=== PATIENT | female | born 1985 | race Hispanic/Latino ===

== ENCOUNTER 2018-06-23 09:45 | Inpatient (IN) | payer OTHER, SELFPAY ==
[2018-06-23 12:25] VITALS: BMI 28.0
[2018-06-23] MEDS ORDERED: HYDROcodone/Acetaminophen 5/325 mg Tablet PO PRN (12:31)
[2018-06-23] MEDS ORDERED: Ondansetron PF 4 MG/2 ML Vial IVP PRN ×2 (12:31→21:13)
[2018-06-23] MEDS ORDERED: Methylergonovine 0.2 MG/ML VIAL IM PRN (12:31)
[2018-06-23] MEDS ORDERED: Butorphanol Tartrate 1 MG/ML VIAL SLOW IVP PRN (12:31)
[2018-06-23] MEDS ORDERED: Diphenoxylate HCl/Atropine Tablet PO PRN (12:31)
[2018-06-23] MEDS ORDERED: NS / Oxytocin 40 units/1000ml 1,000 ML IV PRN (12:31)
[2018-06-23] MEDS ORDERED: Misoprostol 200 MCG TAB PR PRN (12:31)
[2018-06-23] MEDS ORDERED: Carboprost 250 MCG/ML AMP IM PRN (12:31)
[2018-06-23] MEDS ORDERED: Ibuprofen 800 MG TAB PO PRN (12:31)
[2018-06-23] MEDS ORDERED: Lidocaine 1% (PF) 30 ML VIAL SC PRN (12:31)
[2018-06-23] MEDS: Lactated Ringer's 1,000 ML IV SCH ×2 (12:55→20:31)
[2018-06-23 13:14] LABS: Hemoglobin 14.1 g/dL (12.0-16.0); Mean Corpuscular HGB CONC 35.4 g/dL (32.0-36.0); Mean Corpuscular Hemoglobin 30.3 pg (27.0-31.0); Mean Corpuscular Volume 85.8 fL (78.0-98.0); Mean Platelet Volume 6.9 fL (7.4-10.4); Platelet Count 295 thou/uL (130-400); RBC Distribution Width 13.2 % (11.5-14.5); Red Blood Cell (RBC) Count 4.63 mill/uL (4.20-5.40); White Blood Cell (WBC) Count 11.4 thou/uL (4.8-10.8)
--- NOTE | 2018-06-23 13:22 | ULT ---
LIMITED OB ULTRASOUND: History: Confirm demise. No cardiac activity detected. Technique: Multiplanar grayscale and color doppler images were obtained in a transabdominal ult rasound. FINDINGS: There is very little amniotic fluid volume. There is an intrauterine . No heart rate i s able to be detected. IMPRESSION: Confirmation of demise. POS: RON
[2018-06-23] MEDS ORDERED: Misoprostol 200 MCG TAB ONE (13:24)
[2018-06-23] MEDS: Misoprostol 100 MCG TAB PO SCH ×2 (13:27→17:37)
[2018-06-23] MEDS ORDERED: Fentanyl 4 mcg/Bup 0.1% Cadd 100 ML ONE (20:17)
[2018-06-23] MEDS ORDERED: Lidocaine 1.5%/Epinephrine 1:200,000 5 ML AMPUL IJ ONE (20:17)
[2018-06-23] MEDS ORDERED: Lactated Ringer's 500 ML IV PRN (21:13)
[2018-06-23] MEDS ORDERED: Promethazine HCl 25 MG/ML VIAL IM PRN (21:13)
[2018-06-23] MEDS ORDERED: Naloxone HCl 0.4 mg/ml Vial IVP PRN ×2 (21:13)
[2018-06-23] MEDS ORDERED: ePHEDrine/0.9% NaCl/PF SYRINGE 50 mg/10 ml SLOW IVP PRN (21:13)
[2018-06-23] MEDS ORDERED: diphenhydrAMINE 50 MG/ML VIAL IVP PRN (21:13)
[2018-06-23] MEDS ORDERED: Eucerin (Mineral Oil/Petrolatum,White) 30 gm Jar TOP PRN (21:13)
[2018-06-23] MEDS ORDERED: Acetaminophen 325 MG TAB PO PRN (21:13)
[2018-06-23] MEDS ORDERED: Fentanyl 4 mcg/Bupivacaine 0.1% Cassette 100 ML EPIDURAL SCH (21:15)
[2018-06-23] MEDS ORDERED: Communication Order-Pharmacy FS SCH (21:15)
[2018-06-23] MEDS: Misoprostol 200 MCG TAB PO SCH (22:10)
[2018-06-24] MEDS: Lactated Ringer's 1,000 ML IV SCH ×2 (01:21→12:45)
[2018-06-24] MEDS ORDERED: Fentanyl 4 mcg/Bup 0.1% Cadd 100 ML ONE (05:25)
[2018-06-24] MEDS: Misoprostol 200 MCG TAB PO SCH (05:28)
[2018-06-24] MEDS ORDERED: Misoprostol 200 MCG TAB ONE (08:11)
[2018-06-24] MEDS ORDERED: Bisacodyl 10 MG SUPP PR PRN (09:21)
[2018-06-24] MEDS ORDERED: Ondansetron PF 4 MG/2 ML Vial IVP PRN (09:21)
[2018-06-24] MEDS ORDERED: HYDROcodone/Acetaminophen 5/325 mg Tablet PO PRN ×2 (09:21)
[2018-06-24] MEDS ORDERED: diphenhydrAMINE 25 MG CAP PO PRN (09:21)
[2018-06-24] MEDS ORDERED: Milk Of Magnesia 30 ML UDCUP PO PRN (09:21)
[2018-06-24] MEDS ORDERED: NS / Oxytocin 40 units/1000ml 1,000 ML IV SCH (09:30)
[2018-06-24] MEDS ORDERED: NIFEdipine XL 60 MG TAB PO SCH (10:00)
[2018-06-24 11:32] VITALS: BP 158/84
[2018-06-24] MEDS ORDERED: Bupivacaine HCl 0.25%/Epi 0.0005/PF 10 ML VIAL FS ONE (13:07)
[2018-06-24] MEDS ORDERED: Ibuprofen 800 MG TAB PO SCH (14:00)
[2018-06-24] MEDS ORDERED: Ferrous Sulfate 325 MG TAB PO SCH (17:00)
[2018-06-24] MEDS ORDERED: Docusate Calcium (SURFAK) 240 MG CAP PO SCH (21:00)
[2018-06-25] MEDS ORDERED: NIFEdipine XL 60 MG TAB PO SCH (09:00)
== END 2018-06-24 17:54 | disposition home or self-care (01) | DRG 806 ==
LOC: L&D 10:56
PROVIDERS: ADMIT Family Medicine; ATTEND Family Medicine
PROC: 10E0XZZ Delivery of Products of Conception, External Approach (ICD-10-PCS; principal; 2018-06-23)
PROC: 3E0P7VZ Introduction of Hormone into Female Reproductive, Via Natural or Artificial Opening (ICD-10-PCS; 2018-06-23)
DX: O36.4XX0 Maternal care for intrauterine death, not applicable or unspecified (principal); O10.92 Unspecified pre-existing hypertension complicating childbirth; Z37.1 Single stillbirth; O69.1XX0 Labor and delivery complicated by cord around neck, with compression, not applicable or unspecified; Z3A.34 34 weeks gestation of pregnancy
CPT/HCPCS: 36415; 51702; 76815; 85027; 86850; 86900; 86901; 88307; J2001; J3490

== ENCOUNTER 2021-12-15 18:11 | Observation (INO) | payer MEDICAID ==
[2021-12-15] MEDS ORDERED: Ondansetron ODT 4 MG TAB PO PRN (21:18)
[2021-12-15] MEDS ORDERED: Ondansetron PF 4 MG/2 ML Vial IVP PRN (21:18)
[2021-12-15] MEDS ORDERED: Acetaminophen 650 MG Suppository PR PRN (21:18)
[2021-12-15 22:00] VITALS: BMI 31.7
[2021-12-15] MEDS: Sodium Chloride 0.9% 1,000 ML IV SCH (23:53)
[2021-12-16] MEDS ORDERED: VANCOMYCIN 1.25 GM/250 ML BAG IVPB SCH (03:00)
[2021-12-16] MEDS: VANCOMYCIN 1.25 GM/250 ML BAG 1.25 GM in Premix Bag 1 BAG IVPB SCH ×2 (04:08→14:46)
[2021-12-16 05:58] LABS: Anion Gap 15 mmol/L (10-20); BUN (Urea Nitrogen) 7 mg/dL (7.0-18.7); Calc. Creatinine Clearance 163 mL/min (70-130); Calcium 8.3 mg/dL (7.8-10.44); Carbon Dioxide 18 mmol/L (22-29); Chloride 112 mmol/L (98-107); Glucose 98 mg/dL (70-105); Potassium 3.7 mmol/L (3.5-5.1); Sodium 141 mmol/L (136-145)
[2021-12-16 05:59] LABS: Hemoglobin 10.8 g/dL (12.0-16.0); Mean Corpuscular HGB CONC 33.9 g/dL (32.0-36.0); Mean Corpuscular Hemoglobin 31.5 pg (27.0-31.0); Mean Platelet Volume 8.4 fL (7.4-10.4); Platelet Count 199 thou/uL (130-400); RBC Distribution Width 14.1 % (11.5-14.5); Red Blood Cell (RBC) Count 3.41 mill/uL (4.20-5.40); White Blood Cell (WBC) Count 12.6 thou/uL (4.8-10.8)
[2021-12-16] MEDS: Acetaminophen 325 MG TAB PO PRN ×3 (06:25→14:46)
[2021-12-16 06:42] LABS: Band 23 % (5-11); Lymphocytes 15 % (21-51); MDiff Complete? YES; Monocytes 4 % (0-10); Neutrophil 58 % (42-75)
[2021-12-16] MEDS: Enoxaparin Sodium 40 MG/0.4 ML SYRINGE SC SCH (08:01)
[2021-12-16] MEDS: Sodium Chloride 0.9% 1,000 ML IV SCH (14:47)
[2021-12-16] MEDS ORDERED: cefTRIAXone\\ROCEPHIN 1 GM in Sodium Chloride 0.9% 100 ML IVPB SCH (17:00)
[2021-12-16] MEDS ORDERED: Ibuprofen 200 MG TAB PO SCH (19:30)
[2021-12-17 02:10] LABS: #Basophils 0.1 thou/uL (0.0-0.2); #Eosinphils 0.2 thou/uL (0.0-0.7); #Lymphocytes 2.4 thou/uL (1.20-3.40); #Monocytes 0.8 thou/uL (0.11-0.59); %Basophils 0.5 % (0.0-1.0); %Eosinophils 1.7 % (0.0-10.0); %Lymphocytes 22.8 % (21.0-51.0); %Monocytes 7.6 % (0.0-10.0); %Neutrophils 67.3 % (42.0-75.0); Hemoglobin 10.9 g/dL (12.0-16.0); Mean Corpuscular HGB CONC 34.2 g/dL (32.0-36.0); Mean Corpuscular Hemoglobin 31.7 pg (27.0-31.0); Mean Corpuscular Volume 92.7 fL (78.0-98.0); Mean Platelet Volume 7.1 fL (7.4-10.4); Platelet Count 253 thou/uL (130-400); RBC Distribution Width 13.9 % (11.5-14.5); Red Blood Cell (RBC) Count 3.44 mill/uL (4.20-5.40); White Blood Cell (WBC) Count 10.5 thou/uL (4.8-10.8)
[2021-12-17 02:30] LABS: Vancomycin, Trough 6.6 ug/mL
[2021-12-17 02:37] LABS: Anion Gap 11 mmol/L (10-20); BUN (Urea Nitrogen) 8 mg/dL (7.0-18.7); Calc. Creatinine Clearance 148 mL/min (70-130); Calcium 8.3 mg/dL (7.8-10.44); Carbon Dioxide 21 mmol/L (22-29); Chloride 110 mmol/L (98-107); Glucose 89 mg/dL (70-105); Potassium 3.4 mmol/L (3.5-5.1); Sodium 139 mmol/L (136-145)
[2021-12-17] MEDS: Enoxaparin Sodium 40 MG/0.4 ML SYRINGE SC SCH (08:01)
[2021-12-17 11:53] VITALS: BP 144/97; TEMP 98.1
== END 2021-12-17 15:00 | disposition home or self-care (01) ==
LOC: NEURO 20:14
PROVIDERS: ADMIT Hospitalist; ATTEND Hospitalist
DX: O86.21 Infection of kidney following delivery (principal); B96.20 Unspecified Escherichia coli [E. coli] as the cause of diseases classified elsewhere; O10.93 Unspecified pre-existing hypertension complicating the puerperium; O99.893 Other specified diseases and conditions complicating puerperium; M54.9 Dorsalgia, unspecified; R51.9 Headache, unspecified; Z86.32 Personal history of gestational diabetes; Z79.899 Other long term (current) drug therapy
CPT/HCPCS: 36415; 72148; 80048; 80202; 85025; 96372; 96374; 96375; 96376; G0378; J0696; J1650; J3370; J3490; J7050